=== PATIENT | female | born 1970 | race Caucasian/White ===

== ENCOUNTER 2021-05-21 10:49 | Outpatient (REF) | payer OTHER, SELFPAY ==
--- NOTE | 2021-05-21 09:30 | PAPFT_PTH ---
PATIENT: Lita Redding LOC: [facility]#:[id number] AGE/SX: 50/F ROOM: RE05/21/[address]: NORIS Osborn : 1970 BED: DIS: 05/21/2021 SPEC #: [id number] RECD: 05/21/21 12:57 STATUS: KEKE RENelson #: [id number] BEBE: 05/21/21 09:[address]: Bev Fulton DEPT: [facility] [place] Cytology RECD BY: Jannie Alston Tissues: 1 - CX/ENDOCX FOR PAP SMEARS Procedures: PAP THIN PREP/[facility] Screening HPV DNA PROBE Comments: [id number]
== END 2021-05-21 10:50 | disposition home or self-care (01) ==
LOC: LBN 10:49
PROVIDERS: Referring Provider Nurse Practitioner Family; Visit Provider Nurse Practitioner Family
DX: Z12.4 Encounter for screening for malignant neoplasm of cervix (principal); Z11.51 Encounter for screening for human papillomavirus (HPV)
CPT/HCPCS: 88142; 87624

== ENCOUNTER 2022-04-22 18:25 | Outpatient (REF) | payer OTHER, SELFPAY ==
[2022-04-22 16:23] LABS: Abs Immature Grans 0.01 10^3/uL (0.0-0.06); Absolute Basophil Count 0.07 10^3/uL (0.0-0.2); Absolute Eosinophil Count 0.15 10^3/uL (0.0-0.7); Absolute Lymphocyte Count 1.97 10^3/uL (1.2-3.4); Absolute Monocyte Count 0.33 10^3/uL (0.1-0.8); Absolute Neutrophil Count 3.15 10^3/uL (1.2-6.7); Basophils % 1.2; Eosinophils % 2.6; HCT 43.5 % (36.0-46.0); HGB 14.6 g/dL (11.2-15.7); Immature Grans % 0.2; Lymphocytes % 34.7; MCH 30.4 pg (27.0-33.0); MCHC 33.6 % (32.0-36.0); MCV 91 fL (80-95); MPV 10.5 fL (8.0-11.0); Monocytes % 5.8; Neutrophils % 55.5; Platelet Count 290 10^3/uL (130-400); RDW-SD 43.3 fL; WBC 5.68 10^3/uL (4.4-10.8)
[2022-04-22 16:51] LABS: ALT 20 U/L (14-59); AST 15 U/L (15-37); Albumin 4.1 g/dL (3.4-5.0); Alkaline Phosphatase 44 U/L (46-116); Anion Gap 14.1 mmol/L (3-11); BUN 24 mg/dL (7-18); Bilirubin, Total 0.3 mg/dL (0.2-1.0); CO2 23.9 mmol/L (21.0-32.0); CREATININE 0.7 mg/dL (0.55-1.02); Calcium 8.9 mg/dL (8.5-10.1); Calculated LDL 132 mg/dL (<100); Chloride 104 mmol/L (98-107); Cholesterol 202 mg/dL (<200); Glucose 96 mg/dL (74-106); HDL Cholesterol 62 mg/dL (40-60); Potassium 4.1 mmol/L (3.5-5.1); Sodium 142 mmol/L (136-145); TSH 1.67 uIU/mL (0.36-3.74); Total Protein 7.3 g/dL (6.4-8.2); Triglyceride 41 mg/dL (<150)
[2022-04-22 17:08] LABS: C-Reactive Protein 0.52 mg/dL (0.0-0.3); FREE T4 0.94 ng/dL (0.76-1.46)
[2022-04-22 22:19] LABS: Rheumatoid Factor <8.6 IU/mL (<12.0)
[2022-04-23 10:34] LABS: Lyme Ab w Rflx to Lyme Confirm Negative (Negative)
[2022-04-23 15:10] LABS: ANA Interpretation Negative (Negative)
== END 2022-04-22 18:26 | disposition home or self-care (01) ==
LOC: NCHCN 18:25
PROVIDERS: PCP Nurse Practitioner Family; Visit Provider Nurse Practitioner Family
DX: M25.50 Pain in unspecified joint (principal); R63.5 Abnormal weight gain; Z13.220 Encounter for screening for lipoid disorders; Z01.84 Encounter for antibody response examination
CPT/HCPCS: 80053; 80061; 84439; 84443; 85025; 86038; 86140; 86431; 86618

== ENCOUNTER 2025-05-12 13:53 | Outpatient (REF) | payer OTHER, SELFPAY ==
[2025-05-12 21:20] LABS: Hemoglobin A1C 5.3 % (<5.7)
[2025-05-12 21:25] LABS: TSH (W/Ref FT4) 1.11 uIU/mL (0.36-3.74)
== END 2025-05-12 13:54 | disposition home or self-care (01) ==
LOC: NCHCN 13:53
PROVIDERS: Visit Provider Family Medicine
DX: Z13.1 Encounter for screening for diabetes mellitus (principal); R63.5 Abnormal weight gain
CPT/HCPCS: 83036; 84443